=== PATIENT | male | born 1955 | race Hispanic/Latino ===

== ENCOUNTER → 2018-03-16 | Outpatient (CLI) | payer OTHER ==
[~2018-03-16] MED LIST: AMLO10TA2 PO; ASPI-1005 PO; CITA-107 PO; CLON0.2T PO; CLOP75TA32 PO; DILT240C96 PO; FLUT16H NASAL; HYDR-3421 PO; HYDR-4060 PO; ISOS60TA4 PO; LISI10TA7 PO; METO25TA6 PO; NITR.4 SL; SIMV40TA5 PO
== END | disposition home or self-care (01) ==
LOC: RAH 15:52
PROVIDERS: ATTEND Family Medicine
DX: M16.11 Unilateral primary osteoarthritis, right hip (principal); M17.11 Unilateral primary osteoarthritis, right knee
CPT/HCPCS: 73502; 73562

== ENCOUNTER 2018-07-29 17:32 | Emergency (ER) | payer OTHER ==
[~2018-07-29 17:32] MED LIST changes: -AMLO10TA2 PO; +AMLO10TA6 PO; -ASPI-1005 PO; -CITA-107 PO; -DILT240C96 PO; -HYDR-3421 PO; -HYDR-4060 PO; +LISI-613 PO; -LISI10TA7 PO; -NITR.4 SL; +PRAV20TA4 PO
[2018-07-29 19:04] LABS: BASOPHILS % (AUTO) 1.2 % (0.0-5.0); EOSINOPHILS % (AUTO) 3.9 % (0.0-8.0); HEMATOCRIT 42.7 % (42-54); LYMPHOCYTES % (AUTO) 22.5 % (21.0-51.0); MEAN CORPUSCULAR HEMOGLOBIN 32.2 pg (27.0-33.0); MEAN CORPUSCULAR HGB CONC 34.6 g/dL (32.0-36.0); MEAN CORPUSCULAR VOLUME 93.1 fL (79-99); MONOCYTES % (AUTO) 9.7 % (3.0-13.0); NEUTROPHILS % (AUTO) 62.7 % (40.0-77.0); PLATELET COUNT (AUTO) 191 K/uL (130-400); RED BLOOD CELL COUNT(AUTO) 4.59 MIL/uL (4.50-6.20); RED CELL DISTRIBUTION WIDTH 13.5 % (11.0-15.5); WHITE BLOOD COUNT (AUTO) 5.7 K/uL (4.8-10.8)
[2018-07-29 19:27] LABS: APPEARANCE,URINE Clear (CLEAR); BILIRUBIN,URINE Negative (NEGATIVE); COLOR,URINE Yellow (YELLOW); GLUCOSE, URINE (UA) Negative (NEGATIVE); KETONES,URINE Negative (NEGATIVE); LEUKOCYTE ESTERASE ,URINE Negative (NEGATIVE); NITRATE,URINE Negative (NEGATIVE); OCCULT BLOOD,URINE Negative (NEGATIVE); PROTEIN,URINE Negative (NEGATIVE); UROBILINOGEN,URINE 0.2 mg/dL (0.2-1.0)
[2018-07-29 19:28] LABS: CREATININE 0.8 mg/dL (0.5-1.5); POTASSIUM 3.6 mmol/L (3.5-5.1)
[2018-07-29 19:53] LABS: INR 0.93 (0.85-1.15); PARTIAL THROMBOPLASTIN TIME 27.6 SEC (26.3-35.5); PROTHROMBIN TIME 9.8 SEC (9.6-11.6)
== END 2018-07-29 21:39 | disposition home or self-care (01) ==
LOC: EDH 17:32
DX: M25.471 Effusion, right ankle (principal); I25.10 Atherosclerotic heart disease of native coronary artery without angina pectoris; E11.9 Type 2 diabetes mellitus without complications; E78.5 Hyperlipidemia, unspecified; I10 Essential (primary) hypertension; Z88.6 Allergy status to analgesic agent; Z79.4 Long term (current) use of insulin
CPT/HCPCS: 36415; 80048; 81003; 85025; 85610; 85730; 93926; 93971

== ENCOUNTER → 2018-11-01 | Outpatient (CLI) | payer OTHER ==
[~2018-11-01] MED LIST changes: -AMLO10TA6 PO; +AMLO10TA7 PO
== END | disposition home or self-care (01) ==
LOC: SHCH 09:26
PROVIDERS: ATTEND Internal Medicine Cardiovascular Disease
DX: I73.9 Peripheral vascular disease, unspecified (principal)
CPT/HCPCS: 93925

== ENCOUNTER → 2018-11-08 | Outpatient (CLI) | payer OTHER ==
[2018-11-08 08:57] LABS: CREATININE 1.2 mg/dL (0.5-1.5)
== END | disposition home or self-care (01) ==
LOC: LAB 08:28
PROVIDERS: ATTEND Family Medicine
DX: I73.9 Peripheral vascular disease, unspecified (principal)
CPT/HCPCS: 36415; 82565; 84520

== ENCOUNTER → 2018-11-14 | Outpatient (CLI) | payer OTHER ==
[~2018-11-14] MED LIST changes: +IOHEXOL 350 MG/ML 100ML INFUS..BTL IV ONE; +IOHEXOL-350 50ML VIAL IV ONE
== END | disposition home or self-care (01) ==
LOC: OIH 10:00
PROVIDERS: ATTEND Internal Medicine Cardiovascular Disease
DX: I70.202 Unspecified atherosclerosis of native arteries of extremities, left leg (principal); I77.1 Stricture of artery; K76.0 Fatty (change of) liver, not elsewhere classified; K57.30 Diverticulosis of large intestine without perforation or abscess without bleeding
CPT/HCPCS: 75635; Q9967 ×2

== ENCOUNTER 2018-11-25 07:25 | Day surgery (SDC) | payer OTHER ==
[2018-11-22 09:30] LABS: APPEARANCE,URINE Cloudy (CLEAR); BILIRUBIN,URINE Small (NEGATIVE); COLOR,URINE Dark Yellow (YELLOW); GLUCOSE, URINE (UA) Negative (NEGATIVE); KETONES,URINE Trace mg/dL (NEGATIVE); LEUKOCYTE ESTERASE ,URINE Trace (NEGATIVE); NITRATE,URINE Negative (NEGATIVE); OCCULT BLOOD,URINE Negative (NEGATIVE); PROTEIN,URINE Negative (NEGATIVE)
[2018-11-22 09:33] LABS: CREATININE 0.9 mg/dL (0.5-1.5); POTASSIUM 3.4 mmol/L (3.5-5.1)
[2018-11-22 09:34] LABS: BASOPHILS % (AUTO) 3.1 % (0.0-5.0); EOSINOPHILS % (AUTO) 11.6 % (0.0-8.0); HEMATOCRIT 42.2 % (42-54); LYMPHOCYTES % (AUTO) 22.3 % (21.0-51.0); MEAN CORPUSCULAR HEMOGLOBIN 32.4 pg (27.0-33.0); MEAN CORPUSCULAR HGB CONC 34.5 g/dL (32.0-36.0); MEAN CORPUSCULAR VOLUME 93.8 fL (79-99); PLATELET COUNT (AUTO) 233 K/uL (130-400); RED CELL DISTRIBUTION WIDTH 13.9 % (11.0-15.5); WHITE BLOOD COUNT (AUTO) 4.8 K/uL (4.8-10.8)
[2018-11-22 09:41] LABS: BACTERIA,URINE Rare /HPF (None Seen); INR 0.94 (0.85-1.15); MUCUS,URINE Moderate LPF (None Seen); PROTHROMBIN TIME 9.9 SEC (9.6-11.6); RBC,URINE None Seen /HPF (0-1); WBC,URINE 0-1 /HPF (0-1)
[2018-11-22 09:42] LABS: CALCIUM OXALATE CRYSTALS,UR Moderate /LPF (None Seen); SQUAMOUS EPITHELIAL CELL,UR 0-2 /HPF (0-2)
[2018-11-22 09:57] VITALS: BP 119/58
--- NOTE | 2018-11-24 10:25 | NUR ---
ABNORMAL LABS NOTIFIED ELHAM MENDIOLA OF PT'S POTASSIUM 3.4., UA- ULEUKEST TRACE, UWBC 0-1, NITRATES NEG. ORDERS TO REDRAW POTASSIUM UPON ARRIVAL DOS.
[~2018-11-25] VITALS: Ht 170.2 cm; Wt 83.7 kg
[2018-11-25] VITALS (16 sets, daily range): BP systolic 126–147; BP diastolic 67–82
[~2018-11-25 07:25] MED LIST changes: -CLON0.2T PO; -IOHEXOL 350 MG/ML 100ML INFUS..BTL IV ONE; -IOHEXOL-350 50ML VIAL IV ONE; +SODIUM CHLORIDE 0.9% 500ML 500 ML IV SCH
[2018-11-25] MEDS ORDERED: SODIUM CHLORIDE 0.9% 1000ML 1,000 ML IV ONE (07:41)
--- NOTE | 2018-11-25 08:32 | NUR ---
BELONGINGS WITH Addendum: 11/25/18 at 0837 by GWENDOLYN OSUNA RN RN Amended: Links added.
[2018-11-25] MEDS ORDERED: MELA5TAB14 PO (08:52)
[2018-11-25] MEDS ORDERED: HEPARIN SODIUM 1000UNIT/ML 10ML VIAL ONE (08:56)
[2018-11-25] MEDS ORDERED: LIDOCAINE HCL 2% 20ML ONE ×2 (08:56→13:31)
[2018-11-25] MEDS ORDERED: IODIXANOL 320 MG/ML 100 ML VIAL ONE (08:56)
[2018-11-25] MEDS ORDERED: NITROGLYCERIN 5 MG/ML 10 ML VIAL IV ONE (08:56)
[2018-11-25] MEDS ORDERED: MIDAZOLAM HCL 1 MG/ML 2ML VIAL ONE ×2 (08:57→13:30)
[2018-11-25] MEDS ORDERED: FENTANYL CITRATE PF 50 MCG/1 ML 2ML VIAL ONE ×2 (08:57→13:30)
--- NOTE | 2018-11-25 09:06 | NUR ---
PROCEDURE PT TAKEN TO PROCEDURE VIA BED. AT BEDSIDE.
[2018-11-25] MEDS ORDERED: SODIUM CHLORIDE 0.9% 1000ML 1,000 ML IV SCH ×2 (10:32→14:26)
[2018-11-25] MEDS ORDERED: METOPROLOL TARTRATE 1 MG/ML 5ML VIAL IV PRN ×2 (10:45→14:30)
[2018-11-25] MEDS ORDERED: HYDRALAZINE HCL 20 MG/ML VIAL IV PRN (10:45)
[2018-11-25] MEDS ORDERED: DEXTROSE 50%-WATER 50 ML DISP.SYRIN IV PRN ×2 (10:45→14:30)
[2018-11-25] MEDS ORDERED: GLUCAGON 1MG KIT 1 MG ML IM PRN ×2 (10:45→14:30)
--- NOTE | 2018-11-25 11:00 | NUR ---
PROCEDURE RECEIVED PT FROM PROCEDURE. DSTAT TO RIGHT FEMORAL GROIN SITE. SOFT TO TOUCH. NO BLEEDING, OOZING NOTED TO SITE. AT BEDSIDE. PT TO BE RE-CONSENTED FOR NEW PROCEDURE. DONE.
[2018-11-25] MEDS ORDERED: INSULIN HUMULIN R 100 UNIT/ML 3ML SQ SCH ×2 (11:30→16:30)
--- NOTE | 2018-11-25 13:22 | NUR ---
PROCEDURE PT TAKEN TO RESIDENTIAL PROGRAM COORDINATOR PT VIA BED BY Bre BHAKTA RN. PT STILL ON BEDREST. DENIES ANY DISCOMFORT. SITE TO RIGHT GROIN SOFT TO TOUCH.
[2018-11-25] MEDS ORDERED: PROTAMINE SULFATE 10 MG/ML 25ML VIAL IV ONE (14:27)
[2018-11-25] MEDS ORDERED: NITROGLYCERIN 0.4 MG SL TAB SL PRN (14:30)
[2018-11-25] MEDS ORDERED: ACETAMINOPHEN 325 MG TAB PO PRN (15:30)
--- NOTE | 2018-11-25 15:35 | NUR ---
ASSESSMENT RECEIVED PT FROM CAD PROGRAMMER STAFF GARDENIA STEEN. PT LYING IN BED. SITE TO LEFT GROIN SOFT TO TOUCH. PT WELL AWARE OF NOT MOVING LEFT LEG AND NOT LIFTING HEAD UP OFF OF BED. PT VERBALIZED UNDERSTANDING. SITE TO RIGHT GROIN SOFT TO TOUCH. DSTAT IN PLACE. NO BLEEDING, OOZING NOTED TO SITE.
--- NOTE | 2018-11-25 16:18 | NUR ---
REPORT REPORT GIVEN TO Anabel SEAY RN. PT ON BEDREST. SITE TO BOTH RIGHT AND LEFT GROIN SOFT TO TOUCH.
--- NOTE | 2018-11-25 18:30 | NUR ---
PT TOLERATED PROCEDURE WELL, NO C/O CHEST PAIN, DRESSINGS D/I. PT ABLE TO AMBULATE TO RESTROOM AND BACK TO ROOM, ASSISTED PT TO GET DRESSED AT BEDSIDE. POST CARE INSTRUCTIONS GIVEN TO PT AND , BOTH VERBALIZED UNDERSTANDING. PT PLACED IN WHEELCHAIR , DRIVEN HOME BY .
[2018-11-26] MEDS ORDERED: CLOPIDOGREL BISULFATE 75 MG TAB PO SCH (09:00)
== END 2018-11-25 18:30 | disposition home or self-care (01) ==
LOC: DAH 07:25
PROVIDERS: ATTEND Internal Medicine Cardiovascular Disease
DX: I70.218 Atherosclerosis of native arteries of extremities with intermittent claudication, other extremity (principal); I70.213 Atherosclerosis of native arteries of extremities with intermittent claudication, bilateral legs; E11.51 Type 2 diabetes mellitus with diabetic peripheral angiopathy without gangrene; E78.5 Hyperlipidemia, unspecified; Z86.73 Personal history of transient ischemic attack (TIA), and cerebral infarction without residual deficits; Z95.5 Presence of coronary angioplasty implant and graft; Z98.890 Other specified postprocedural states; Z79.899 Other long term (current) drug therapy; Z79.01 Long term (current) use of anticoagulants; Z88.8 Allergy status to other drugs, medicaments and biological substances; Z95.1 Presence of aortocoronary bypass graft; I10 Essential (primary) hypertension
CPT/HCPCS: 36247; 36415 ×2; 37224; 71045; 75630; 80048; 81001; 84132; 85025; 85347 ×2; 85610; 85730; 93005; A4606; C1725; C1769 ×3; C1887; C1893 ×2; C1894 ×5; J1644 ×3; J2250 ×2; J2720; J3010 ×2; J3490 ×3; J7030; Q9967; 99156; 99157

== ENCOUNTER → 2018-12-15 | Outpatient (CLI) | payer OTHER ==
[~2018-12-15] MED LIST changes: +MELA5TAB14 PO; -SODIUM CHLORIDE 0.9% 500ML 500 ML IV SCH
[2018-12-15 08:35] LABS: ALBUMIN 3.8 g/dL (3.5-5.0); BILIRUBIN,DIRECT 0.2 mg/dL (0.0-0.3); BILIRUBIN,TOTAL 0.5 mg/dL (0.2-1.0); TOTAL PROTEIN, SERUM 7.9 g/dL (6.0-8.3)
== END | disposition home or self-care (01) ==
LOC: LAB 07:58
PROVIDERS: ATTEND Internal Medicine Cardiovascular Disease
DX: I73.9 Peripheral vascular disease, unspecified (principal); I25.10 Atherosclerotic heart disease of native coronary artery without angina pectoris; E78.5 Hyperlipidemia, unspecified
CPT/HCPCS: 36415; 80061; 80076

== ENCOUNTER → 2019-01-12 | Outpatient (CLI) | payer OTHER ==
[2019-01-12 08:53] LABS: BASOPHILS % (AUTO) 1.4 % (0.0-5.0); EOSINOPHILS % (AUTO) 5.8 % (0.0-8.0); HEMATOCRIT 43.2 % (42-54); LYMPHOCYTES % (AUTO) 25.8 % (21.0-51.0); MEAN CORPUSCULAR HEMOGLOBIN 32.3 pg (27.0-33.0); MEAN CORPUSCULAR HGB CONC 34.4 g/dL (32.0-36.0); MEAN CORPUSCULAR VOLUME 94.2 fL (79-99); MONOCYTES % (AUTO) 10.4 % (3.0-13.0); NEUTROPHILS % (AUTO) 56.6 % (40.0-77.0); NUCLEATED RED BLOOD CELLS 0.2 % (0.0-0.19); PLATELET COUNT (AUTO) 198 K/uL (130-400); RED BLOOD CELL COUNT(AUTO) 4.58 MIL/uL (4.50-6.20); RED CELL DISTRIBUTION WIDTH 14.1 % (11.0-15.5); WHITE BLOOD COUNT (AUTO) 4.5 K/uL (4.8-10.8)
[2019-01-12 09:17] LABS: ALBUMIN 3.7 g/dL (3.5-5.0); BILIRUBIN,TOTAL 0.3 mg/dL (0.2-1.0); CREATININE 0.8 mg/dL (0.5-1.5); THYROID STIMULATING HORMONE 2.56 uIU/mL (0.36-3.74); TOTAL PROTEIN, SERUM 7.7 g/dL (6.0-8.3)
== END | disposition home or self-care (01) ==
LOC: RAH 07:57
PROVIDERS: ATTEND Family Medicine
DX: M17.12 Unilateral primary osteoarthritis, left knee (principal); M25.551 Pain in right hip; M25.552 Pain in left hip; M25.561 Pain in right knee; G89.29 Other chronic pain; I10 Essential (primary) hypertension; I73.9 Peripheral vascular disease, unspecified; R42 Dizziness and giddiness
CPT/HCPCS: 36415; 73522; 73562; 80053; 80061; 84443; 85025; 93005

== ENCOUNTER 2019-02-20 17:01 | Emergency (ER) | payer OTHER ==
[~2019-02-20 17:01] MED LIST changes: +ASPI-1197 PO; +BRIM5DRO OP; +CLON0.2T PO; +ISOS20TA7 PO; -ISOS60TA4 PO; -PRAV20TA4 PO; +PRAV40TA3 PO; -SIMV40TA5 PO
== END 2019-02-20 18:42 | disposition home or self-care (01) ==
LOC: EDH 17:01
DX: S20.212A Contusion of left front wall of thorax, initial encounter (principal); E11.9 Type 2 diabetes mellitus without complications; E78.5 Hyperlipidemia, unspecified; I10 Essential (primary) hypertension; I25.10 Atherosclerotic heart disease of native coronary artery without angina pectoris; Z88.6 Allergy status to analgesic agent; Z86.73 Personal history of transient ischemic attack (TIA), and cerebral infarction without residual deficits; Z87.891 Personal history of nicotine dependence; V89.2XXA Person injured in unspecified motor-vehicle accident, traffic, initial encounter; Y93.89 Activity, other specified; Y92.89 Other specified places as the place of occurrence of the external cause; Y99.8 Other external cause status
CPT/HCPCS: 71046

== ENCOUNTER → 2019-04-27 | Outpatient (CLI) | payer OTHER | END | disposition home or self-care (01) | LOC: SHCH 09:55 | PROVIDERS: ATTEND Internal Medicine Cardiovascular Disease | DX: I73.9 Peripheral vascular disease, unspecified (principal) | CPT/HCPCS: 93925 ==

== ENCOUNTER → 2019-12-13 | Outpatient (CLI) | payer OTHER | END | disposition home or self-care (01) | LOC: SHCH 09:43 | PROVIDERS: ATTEND Internal Medicine Cardiovascular Disease | DX: I87.2 Venous insufficiency (chronic) (peripheral) (principal) | CPT/HCPCS: 93970 ==

== ENCOUNTER → 2019-12-22 | Outpatient (CLI) | payer OTHER | END | disposition home or self-care (01) | LOC: SHCH 08:27 | PROVIDERS: ATTEND Internal Medicine Cardiovascular Disease | DX: I73.9 Peripheral vascular disease, unspecified (principal) | CPT/HCPCS: 93925 ==

== ENCOUNTER → 2019-12-29 | Outpatient (CLI) | payer OTHER | END | disposition home or self-care (01) | LOC: RAH 13:06 | PROVIDERS: ATTEND Internal Medicine Cardiovascular Disease | DX: J98.11 Atelectasis (principal); R91.8 Other nonspecific abnormal finding of lung field; J84.10 Pulmonary fibrosis, unspecified | CPT/HCPCS: 71250 ==

== ENCOUNTER → 2020-08-23 | Outpatient (CLI) | payer OTHER ==
[~2020-08-23] MED LIST changes: +AMLO-258 PO; -AMLO10TA7 PO
[2020-08-23 11:39] LABS: BASOPHILS % (AUTO) 1.3 % (0.0-5.0); EOSINOPHILS % (AUTO) 3.5 % (0.0-8.0); HEMATOCRIT 48.4 % (42-54); LYMPHOCYTES % (AUTO) 18.1 % (21.0-51.0); MEAN CORPUSCULAR HEMOGLOBIN 32.5 pg (27.0-33.0); MEAN CORPUSCULAR HGB CONC 34.1 g/dL (32.0-36.0); MEAN CORPUSCULAR VOLUME 95.3 fL (79-99); MONOCYTES % (AUTO) 11.1 % (3.0-13.0); NEUTROPHILS % (AUTO) 65.7 % (40.0-77.0); PLATELET COUNT (AUTO) 232 K/uL (130-400); RED BLOOD CELL COUNT(AUTO) 5.08 MIL/uL (4.50-6.20); RED CELL DISTRIBUTION WIDTH 13.8 % (11.0-15.5); WHITE BLOOD COUNT (AUTO) 7.8 K/uL (4.8-10.8)
[2020-08-23 12:03] LABS: ALBUMIN 4.1 g/dL (3.5-5.0); BILIRUBIN,TOTAL 0.5 mg/dL (0.2-1.0); POTASSIUM 3.7 mmol/L (3.5-5.1); THYROID STIMULATING HORMONE 4.15 uIU/mL (0.36-3.74); TOTAL PROTEIN, SERUM 8.4 g/dL (6.0-8.3)
== END | disposition home or self-care (01) ==
LOC: RAH 10:13
PROVIDERS: ATTEND Family Medicine
DX: C61 Malignant neoplasm of prostate (principal); I25.10 Atherosclerotic heart disease of native coronary artery without angina pectoris; M25.561 Pain in right knee; I10 Essential (primary) hypertension
CPT/HCPCS: 36415; 73562; 80053; 83721; 84066; 84443; 85025

== ENCOUNTER 2022-04-28 11:19 | Observation (INO) | payer OTHER, MEDICARE ==
[~2022-04-28] VITALS: Ht 170.2 cm; Wt 91.6 kg
[~2022-04-28 11:19] MED LIST changes: -DIPH50CA37 PO; -ISOS60TA77 PO; -TAMS-1 PO
[2022-04-28 12:20] LABS: BASOPHILS % (AUTO) 1.4 % (0.0-5.0); EOSINOPHILS % (AUTO) 4.9 % (0.0-8.0); HEMATOCRIT 48.7 % (42-54); LYMPHOCYTES % (AUTO) 16.2 % (21.0-51.0); MEAN CORPUSCULAR HEMOGLOBIN 31.8 pg (27.0-33.0); MEAN CORPUSCULAR HGB CONC 33.7 g/dL (32.0-36.0); MEAN CORPUSCULAR VOLUME 94.4 fL (79-99); MONOCYTES % (AUTO) 10.4 % (3.0-13.0); NEUTROPHILS % (AUTO) 66.8 % (40.0-77.0); PLATELET COUNT (AUTO) 204 K/uL (130-400); RED BLOOD CELL COUNT(AUTO) 5.16 MIL/uL (4.50-6.20); RED CELL DISTRIBUTION WIDTH 13.6 % (11.0-15.5); WHITE BLOOD COUNT (AUTO) 7.9 K/uL (4.8-10.8)
[2022-04-28 12:49] LABS: ALBUMIN 3.3 g/dL (3.5-5.0); CREATININE 0.9 mg/dL (0.5-1.5); POTASSIUM 3.7 mmol/L (3.5-5.1); TOTAL PROTEIN, SERUM 8.1 g/dL (6.0-8.3)
[2022-04-28 12:56] LABS: PROTHROMBIN TIME 10.9 SEC (9.6-11.6)
[2022-04-28 12:57] LABS: PARTIAL THROMBOPLASTIN TIME 28.4 SEC (26.3-35.5)
[2022-04-28 13:05] LABS: B-TYPE NATRIURETIC PEPTIDE 20 pg/mL (0-100)
[2022-04-28] MEDS ORDERED: IOHEXOL 350 MG/ML 100ML INFUS..BTL IV ONE (15:45)
[2022-04-28 18:10] LABS: APPEARANCE,URINE Clear (CLEAR); BILIRUBIN,URINE Negative (NEGATIVE); COLOR,URINE Yellow (YELLOW); GLUCOSE, URINE (UA) Negative (NEGATIVE); KETONES,URINE Trace mg/dL (NEGATIVE); LEUKOCYTE ESTERASE ,URINE Negative (NEGATIVE); NITRATE,URINE Negative (NEGATIVE); OCCULT BLOOD,URINE Negative (NEGATIVE); PROTEIN,URINE Negative (NEGATIVE)
[2022-04-28 18:23] LABS: RBC,URINE 0-1 /HPF (0-1); WBC,URINE 0-1 /HPF (0-1)
[2022-04-28 18:24] LABS: BACTERIA,URINE Rare /HPF (None Seen); SQUAMOUS EPITHELIAL CELL,UR Few /HPF (0-2)
[2022-04-28] MEDS ORDERED: KCL 20 MEQ ERTAB PO PRN (20:00)
[2022-04-28] MEDS ORDERED: ONDANSETRON 4MG INJ IVP PRN (20:00)
[2022-04-28] MEDS ORDERED: ACETAMINOPHEN 325 MG TAB PO PRN (20:00)
[2022-04-28] MEDS ORDERED: GLUCAGON 1MG KIT 1 MG ML IM PRN (20:00)
[2022-04-28] MEDS ORDERED: POTASSIUM CHLORIDE 10% ELIXIR 20 MEQ/15 ML UDCUP PO PRN (20:00)
[2022-04-28] MEDS ORDERED: POTASSIUM CHLORIDE 20MEQ/100ML 100 ML IV PRN (20:00)
[2022-04-28] MEDS ORDERED: DEXTROSE 50%-WATER 50 ML DISP.SYRIN IV PRN (20:00)
[2022-04-28] MEDS ORDERED: LIDOCAINE HCL-MPF 1% 2ML VIAL IV PRN (20:00)
[2022-04-28] MEDS: FAMOTIDINE 20MG TAB PO SCH (20:52)
[2022-04-28] MEDS: INSULIN HUMULIN R 100 UNIT/ML 3ML SQ SCH (20:56)
[2022-04-28] MEDS ORDERED: 0.9%NACL 1000ML 1,000 ML IV SCH (21:30)
[2022-04-28] MEDS ORDERED: TAMSULOSIN HCL 0.4 MG CAP.ER.24H PO SCH (21:30)
[2022-04-28] MEDS ORDERED: TRAZODONE HCL 50 MG TAB PO PRN (21:30)
[2022-04-28] MEDS ORDERED: ASPI-1197 PO (22:17)
[2022-04-28] MEDS ORDERED: CLOP75TA32 PO (22:17)
[2022-04-28] MEDS ORDERED: METO25TA6 PO (22:17)
[2022-04-28] MEDS ORDERED: ISOS60TA77 PO (22:17)
[2022-04-28] MEDS ORDERED: LISI20TA24 PO (22:17)
[2022-04-28] MEDS ORDERED: AMLO-258 PO (22:17)
[2022-04-28] MEDS ORDERED: DIPH50CA37 PO (22:17)
[2022-04-29 00:06] VITALS: BP 159/81
[2022-04-29 04:00] VITALS: BP 130/71
[2022-04-29] MEDS: INSULIN HUMULIN R 100 UNIT/ML 3ML SQ SCH ×2 (05:52→11:30)
[2022-04-29 06:25] LABS: BASOPHILS % (AUTO) 1.8 % (0.0-5.0); HEMATOCRIT 46.3 % (42-54); LYMPHOCYTES % (AUTO) 16.2 % (21.0-51.0); MEAN CORPUSCULAR HGB CONC 33.7 g/dL (32.0-36.0); MEAN CORPUSCULAR VOLUME 95.1 fL (79-99); MONOCYTES % (AUTO) 11.8 % (3.0-13.0); NEUTROPHILS % (AUTO) 65.1 % (40.0-77.0); PLATELET COUNT (AUTO) 193 K/uL (130-400); RED BLOOD CELL COUNT(AUTO) 4.87 MIL/uL (4.50-6.20); RED CELL DISTRIBUTION WIDTH 13.4 % (11.0-15.5); WHITE BLOOD COUNT (AUTO) 6.8 K/uL (4.8-10.8)
[2022-04-29 06:44] LABS: ALBUMIN 3.1 g/dL (3.5-5.0); BILIRUBIN,DIRECT 0.3 mg/dL (0.0-0.3); CREATININE 0.8 mg/dL (0.5-1.5); POTASSIUM 3.7 mmol/L (3.5-5.1); THYROID STIMULATING HORMONE 6.32 uIU/mL (0.36-3.74); TOTAL PROTEIN, SERUM 7.7 g/dL (6.0-8.3)
[2022-04-29 08:00] VITALS: BP 153/73
[2022-04-29 08:52] LABS: ABG BASE EXCESS 0.3 mmol/L (-2.0-3.0); ABG HCO3 24.5 mmol/L (21.0-28.0); ABG OXYGEN SATURATION 96.5 % (95.0-99.0); ABG PCO2 38 mmHg (35-48)
[2022-04-29] MEDS ORDERED: ENOXAPARIN SODIUM 40 MG/0.4 ML SYRINGE SQ SCH (09:00)
[2022-04-29] MEDS ORDERED: TAMSULOSIN HCL 0.4 MG CAP.ER.24H PO SCH (09:00)
[2022-04-29] MEDS: FAMOTIDINE 20MG TAB PO SCH (09:40)
[2022-04-29 12:00] VITALS: BP 151/87
[2022-04-29] MEDS ORDERED: TAMS-1 PO (15:18)
[2022-04-30 06:28] LABS: HEPATITIS A IGM ANTIBODY Non-Reactive (Nonreactive); HEPATITIS B CORE IGM ANTIBODY Non-Reactive (Negative); HEPATITIS B SURFACE ANTIGEN Non-Reactive (Nonreactive); HEPATITIS C ANTIBODY Non-Reactive (Nonreactive)
[2022-04-30] MEDS ORDERED: ASPIRIN 81MG CHEW TAB PO SCH (09:00)
[2022-04-30] MEDS ORDERED: CLOPIDOGREL 75MG TAB PO SCH (09:00)
[2022-04-30] MEDS ORDERED: AMLODIPINE 5 MG TAB PO SCH (09:00)
[2022-04-30] MEDS ORDERED: LISINOPRIL 20 MG TABLET PO SCH (09:00)
[2022-04-30] MEDS ORDERED: ISOSORBIDE MONO 60MG SR TAB PO SCH (09:00)
[2022-04-30] MEDS ORDERED: METOPROLOL TARTRATE 25 MG TAB PO SCH (09:00)
== END 2022-04-29 17:00 | disposition home or self-care (01) ==
LOC: EDH 11:19 → EDHIP 17:38 → INTOOBSV 17:38 → 3AH 04-29 00:06
PROVIDERS: ADMIT Hospitalist; ATTEND Hospitalist
DX: J96.01 Acute respiratory failure with hypoxia (principal); Z20.822 Contact with and (suspected) exposure to COVID-19; K76.0 Fatty (change of) liver, not elsewhere classified; I10 Essential (primary) hypertension; I25.10 Atherosclerotic heart disease of native coronary artery without angina pectoris; E11.9 Type 2 diabetes mellitus without complications; E78.5 Hyperlipidemia, unspecified; G47.33 Obstructive sleep apnea (adult) (pediatric); J44.9 Chronic obstructive pulmonary disease, unspecified; E66.9 Obesity, unspecified; N20.0 Calculus of kidney; Z86.711 Personal history of pulmonary embolism; Z86.73 Personal history of transient ischemic attack (TIA), and cerebral infarction without residual deficits; Z87.891 Personal history of nicotine dependence; Z95.1 Presence of aortocoronary bypass graft; Z79.82 Long term (current) use of aspirin; Z79.899 Other long term (current) drug therapy; Z98.890 Other specified postprocedural states; Z68.31 Body mass index [BMI] 31.0-31.9, adult
CPT/HCPCS: 36415; 36600; 71270; 80048; 80053; 80074; 80076; 81001; 82306; 82550; 82803; 82948; 83880; 84443; 84484; 85025; 85378; 85610; 85730; 87635; 87804; 93005; 93306; 93356; 93970; 94760; 96360; 96361; 96372; C9803; G0378; J1650; J7030; Q9967

== ENCOUNTER → 2022-04-28 | Outpatient (CLI) | payer OTHER ==
[~2022-04-28] MED LIST changes: +DIPH50CA37 PO; -ISOS20TA7 PO; +ISOS20TA85 PO; +ISOS60TA77 PO; -LISI-613 PO; +LISI20TA24 PO; +TAMS-1 PO
[2022-04-28 07:53] LABS: BASOPHILS % (AUTO) 1.9 % (0.0-5.0); EOSINOPHILS % (AUTO) 6.3 % (0.0-8.0); HEMATOCRIT 50.3 % (42-54); MEAN CORPUSCULAR HGB CONC 33.4 g/dL (32.0-36.0); MEAN CORPUSCULAR VOLUME 95.8 fL (79-99); MONOCYTES % (AUTO) 8.7 % (3.0-13.0); NEUTROPHILS % (AUTO) 58.8 % (40.0-77.0); PLATELET COUNT (AUTO) 230 K/uL (130-400); RED BLOOD CELL COUNT(AUTO) 5.25 MIL/uL (4.50-6.20); RED CELL DISTRIBUTION WIDTH 13.6 % (11.0-15.5); WHITE BLOOD COUNT (AUTO) 6.8 K/uL (4.8-10.8)
[2022-04-28 10:13] LABS: ALBUMIN 3.5 g/dL (3.5-5.0); BILIRUBIN,TOTAL 0.4 mg/dL (0.2-1.0); CREATININE 0.8 mg/dL (0.5-1.5); POTASSIUM 3.7 mmol/L (3.5-5.1); THYROID STIMULATING HORMONE 3.15 uIU/mL (0.36-3.74); TOTAL PROTEIN, SERUM 8.5 g/dL (6.0-8.3)
== END | disposition home or self-care (01) ==
LOC: LAB 07:31
PROVIDERS: ATTEND Family Medicine
DX: R10.9 Unspecified abdominal pain (principal); R07.9 Chest pain, unspecified
CPT/HCPCS: 36415; 71045; 80053; 80061; 82150; 83690; 84153; 84154; 84443; 85025; 85378

== ENCOUNTER → 2022-07-07 | Outpatient (CLI) | payer OTHER, MEDICARE ==
[~2022-07-07] MED LIST changes: +DIPH50CA37 PO; +ISOS60TA77 PO; +TAMS-1 PO
[2022-07-07 09:08] LABS: ALBUMIN 3.5 g/dL (3.5-5.0); CREATININE 0.9 mg/dL (0.5-1.5); POTASSIUM 4.4 mmol/L (3.5-5.1); THYROID STIMULATING HORMONE 2.89 uIU/mL (0.36-3.74); TOTAL PROTEIN, SERUM 8.1 g/dL (6.0-8.3)
== END | disposition home or self-care (01) ==
LOC: LAB 07:17
PROVIDERS: ATTEND Family Medicine
DX: M54.50 Low back pain, unspecified (principal)
CPT/HCPCS: 36415; 80053; 80061; 83880; 84443; 85378

== ENCOUNTER → 2023-12-04 | Outpatient (CLI) | payer OTHER | END | disposition home or self-care (01) | LOC: SHCH 11:28 | PROVIDERS: ATTEND Internal Medicine Cardiovascular Disease | DX: I73.9 Peripheral vascular disease, unspecified (principal) | CPT/HCPCS: 93925 ==

== ENCOUNTER → 2023-12-06 | Outpatient (CLI) | payer OTHER ==
[2023-12-06] MEDS: REGADENOSON 0.4 MG/5 ML PF SYG IVP ONE (13:28)
== END | disposition home or self-care (01) ==
LOC: SHCH 08:13
PROVIDERS: ATTEND Internal Medicine Cardiovascular Disease
DX: R07.9 Chest pain, unspecified (principal); I25.810 Atherosclerosis of coronary artery bypass graft(s) without angina pectoris; I20.9 Angina pectoris, unspecified
CPT/HCPCS: 78452; 96374; 93017; J2785; A9500 ×2

== ENCOUNTER → 2024-01-25 | Outpatient (CLI) | payer OTHER ==
[2024-01-25 16:26] LABS: CREATININE 0.7 mg/dL (0.5-1.3); POTASSIUM 4.1 mmol/L (3.5-5.1)
== END | disposition home or self-care (01) ==
LOC: LAB 13:45
PROVIDERS: ATTEND Internal Medicine Cardiovascular Disease
DX: I10 Essential (primary) hypertension (principal); I73.9 Peripheral vascular disease, unspecified
CPT/HCPCS: 36415; 80048

== ENCOUNTER → 2024-02-07 | Outpatient (CLI) | payer OTHER ==
[~2024-02-07] MED LIST changes: +IOHEXOL 350 MG/ML 100ML INFUS..BTL IV ONE; +IOHEXOL-350 50ML VIAL IV ONE; -MELA5TAB14 PO; +MELA5TAB66 PO
== END | disposition home or self-care (01) ==
LOC: RAH 10:08
PROVIDERS: ATTEND Internal Medicine Cardiovascular Disease
DX: I70.203 Unspecified atherosclerosis of native arteries of extremities, bilateral legs (principal); M47.815 Spondylosis without myelopathy or radiculopathy, thoracolumbar region
CPT/HCPCS: 75635; Q9967 ×2

== ENCOUNTER → 2024-02-24 | Outpatient (CLI) | payer OTHER ==
[~2024-02-24] MED LIST changes: -IOHEXOL 350 MG/ML 100ML INFUS..BTL IV ONE; -IOHEXOL-350 50ML VIAL IV ONE
== END ==
LOC: SHCH 14:19
PROVIDERS: ATTEND Internal Medicine Cardiovascular Disease
DX: I87.2 Venous insufficiency (chronic) (peripheral) (principal)
CPT/HCPCS: 93970

== ENCOUNTER 2024-04-27 07:49 | Observation (INO) | payer OTHER ==
[2024-04-25 11:41] LABS: BASOPHILS # (AUTO) 0.09 K/uL (0.00-0.20); BASOPHILS % (AUTO) 1.7 % (0.0-5.0); EOSINOPHILS # (AUTO) 0.24 K/uL (0.00-0.70); EOSINOPHILS % (AUTO) 4.4 % (0.0-8.0); HEMATOCRIT 49.7 % (42-54); IMMATURE GRANULOCYTE ABSOLUTE 0.02 K/uL (0-1); LYMPHOCYTES # (AUTO) 1.6 K/uL (1.0-4.8); LYMPHOCYTES % (AUTO) 29.8 % (21.0-51.0); MEAN CORPUSCULAR HEMOGLOBIN 32.9 pg (27.0-33.0); MEAN CORPUSCULAR VOLUME 96.9 fL (79-99); MONOCYTES # (AUTO) 0.5 K/uL (0.1-1.0); MONOCYTES % (AUTO) 9.9 % (3.0-13.0); NEUTROPHILS # (AUTO) 2.9 K/uL (1.8-7.7); NEUTROPHILS % (AUTO) 53.8 % (40.0-77.0); PLATELET COUNT (AUTO) 181 K/uL (130-400); RED BLOOD CELL COUNT(AUTO) 5.13 MIL/uL (4.50-6.20); RED CELL DISTRIBUTION WIDTH 14.1 % (11.0-15.5); WHITE BLOOD COUNT (AUTO) 5.4 K/uL (4.8-10.8)
[2024-04-25 11:42] VITALS: BP 160/74; PULSE 79; RESP 17
[2024-04-25 11:54] LABS: CREATININE 0.8 mg/dL (0.5-1.3); INR 1.06 (0.85-1.15); POTASSIUM 3.6 mmol/L (3.5-5.1); PROTHROMBIN TIME 11.4 SEC (9.6-11.6)
[2024-04-25 11:55] LABS: PARTIAL THROMBOPLASTIN TIME 28.9 SEC (26.3-35.5)
[2024-04-26 22:45] VITALS: BP 142/70; PULSE 68
[2024-04-27] VITALS (19 sets, daily range): BP systolic 102–151; BP diastolic 55–89; PULSE 59–83; RESP 17–18; O2SAT 90–95
[~2024-04-27] VITALS: Ht 170.2 cm; Wt 92.0 kg
[~2024-04-27 07:49] MED LIST changes: -BRIM5DRO OP; -CLON0.2T PO; -DIPH50CA37 PO; -FLUT16H NASAL; -ISOS60TA77 PO; -MELA5TAB66 PO; +NITR0.4T50 SL; -PRAV40TA3 PO; -TAMS-1 PO
[2024-04-27] MEDS: 0.9%NACL 1000ML 1,000 ML IV ONE (10:02)
[2024-04-27] MEDS ORDERED: LIDOCAINE HCL 400MG/20ML VIAL ONE (11:34)
[2024-04-27] MEDS ORDERED: IODIXANOL 320 MG/ML 100 ML VIAL ONE (11:34)
[2024-04-27] MEDS ORDERED: HEPARIN 10,000 UNIT/10ML (1,000 UNIT/ML) VIAL ONE (11:35)
[2024-04-27] MEDS ORDERED: NITROGLYCERIN 50MG VIAL ONE (11:35)
[2024-04-27] MEDS ORDERED: MIDAZOLAM HCL 1 MG/ML 2ML VIAL ONE (12:00)
[2024-04-27] MEDS ORDERED: FENTANYL CITRATE PF 50 MCG/1 ML 2ML VIAL ONE ×2 (12:00→12:37)
[2024-04-27] MEDS ORDERED: DEXTROSE 50%-WATER 50 ML DISP.SYRIN IV PRN (15:00)
[2024-04-27] MEDS ORDERED: GLUCAGON 1MG KIT 1 MG ML IM PRN (15:00)
[2024-04-27] MEDS ORDERED: NITROGLYCERIN 0.4 MG SL TAB SL PRN ×2 (15:00→16:00)
[2024-04-27] MEDS ORDERED: METOPROLOL TARTRATE 1 MG/ML 5ML VIAL IV PRN (15:00)
[2024-04-27] MEDS: 0.9%NACL 1000ML 1,000 ML IV SCH (15:00)
[2024-04-27] MEDS ORDERED: HYDRALAZINE 25MG TABLET PO PRN (16:00)
[2024-04-27] MEDS ORDERED: POTASSIUM CHLORIDE 10% ELIXIR 20 MEQ/15 ML UDCUP PO PRN (16:00)
[2024-04-27] MEDS ORDERED: POTASSIUM CHLORIDE 20MEQ/100ML 100 ML IV PRN ×2 (16:00)
[2024-04-27] MEDS ORDERED: DIPHENHYDRAMINE HCL 25 MG CAPSULE PO PRN (16:00)
[2024-04-27] MEDS ORDERED: LACTULOSE 20 GM/30 ML UDCUP PO PRN (16:00)
[2024-04-27] MEDS ORDERED: DiphenhydrAMINE HCL 50 MG/ML VIAL IV PRN (16:00)
[2024-04-27] MEDS ORDERED: ONDANSETRON 4MG INJ IV PRN (16:00)
[2024-04-27] MEDS ORDERED: POLYETHYLENE GLYCOL 3350 17 GM POWD.PACK PO PRN (16:00)
[2024-04-27] MEDS ORDERED: DOCUSATE SODIUM 100 MG CAP PO PRN (16:00)
[2024-04-27] MEDS ORDERED: ACETAMINOPHEN 325 MG TAB PO PRN (16:00)
[2024-04-27] MEDS ORDERED: KCL 20 MEQ ERTAB PO PRN (16:00)
[2024-04-27] MEDS: INSULIN HUMULIN R 100 UNIT/ML 3ML SQ SCH ×2 (16:30)
[2024-04-27] MEDS: TRAMADOL HCL 50 MG TABLET PO PRN (19:46)
[2024-04-27] MEDS: FAMOTIDINE 20MG TAB PO SCH (20:40)
[2024-04-27] MEDS ORDERED: 0.9% NACL 500ML IV.SOLN 500 ML IV SCH (21:00)
[2024-04-27] MEDS: ACETAMINOPHEN 325 MG TAB PO PRN (22:57)
[2024-04-28] VITALS (16 sets, daily range): BP systolic 121–157; BP diastolic 61–88; PULSE 62–80; RESP 16–18; O2SAT 96
[2024-04-28] MEDS ORDERED: ZOLPIDEM TARTRATE 5 MG TAB PO PRN (03:00)
[2024-04-28] MEDS: DiphenhydrAMINE HCL 50 MG/ML VIAL IV ONE (03:31)
[2024-04-28 03:57] LABS: BASOPHILS % (AUTO) 1.2 % (0.0-5.0); EOSINOPHILS # (AUTO) 0.28 K/uL (0.00-0.70); EOSINOPHILS % (AUTO) 3.5 % (0.0-8.0); HEMATOCRIT 49.7 % (42-54); IMMATURE GRANULOCYTE ABSOLUTE 0.03 K/uL (0-1); LYMPHOCYTES # (AUTO) 1.3 K/uL (1.0-4.8); LYMPHOCYTES % (AUTO) 16.4 % (21.0-51.0); MEAN CORPUSCULAR HEMOGLOBIN 32.6 pg (27.0-33.0); MEAN CORPUSCULAR HGB CONC 33.8 g/dL (32.0-36.0); MEAN CORPUSCULAR VOLUME 96.3 fL (79-99); MONOCYTES # (AUTO) 0.9 K/uL (0.1-1.0); MONOCYTES % (AUTO) 10.8 % (3.0-13.0); NEUTROPHILS # (AUTO) 5.5 K/uL (1.8-7.7); NEUTROPHILS % (AUTO) 67.7 % (40.0-77.0); PLATELET COUNT (AUTO) 168 K/uL (130-400); RED BLOOD CELL COUNT(AUTO) 5.16 MIL/uL (4.50-6.20); RED CELL DISTRIBUTION WIDTH 13.5 % (11.0-15.5); WHITE BLOOD COUNT (AUTO) 8.1 K/uL (4.8-10.8)
[2024-04-28 04:20] LABS: ALBUMIN 3.7 g/dL (3.5-5.0); BILIRUBIN,TOTAL 0.8 mg/dL (0.2-1.0); CREATININE 0.8 mg/dL (0.5-1.3); MAGNESIUM 1.9 mg/dL (1.80-2.40); POTASSIUM 3.8 mmol/L (3.5-5.1); TOTAL PROTEIN, SERUM 8.4 g/dL (6.0-8.3)
[2024-04-28] MEDS: MAGNESIUM 2GM PREMIX 50ML 50 ML IV PRN (04:31)
[2024-04-28] MEDS: POTASSIUM CHLORIDE 20MEQ/100ML 100 ML IV PRN (05:00)
[2024-04-28] MEDS ORDERED: LIDOCAINE HCL 400MG/20ML VIAL ONE (11:12)
[2024-04-28] MEDS ORDERED: NITROGLYCERIN 50MG VIAL ONE (11:13)
[2024-04-28] MEDS ORDERED: HEPARIN 10,000 UNIT/10ML (1,000 UNIT/ML) VIAL ONE (11:13)
[2024-04-28] MEDS ORDERED: FENTANYL CITRATE PF 50 MCG/1 ML 2ML VIAL ONE (11:15)
[2024-04-28] MEDS ORDERED: MIDAZOLAM HCL 1 MG/ML 2ML VIAL ONE ×2 (11:15→11:30)
[2024-04-28] MEDS ORDERED: IODIXANOL 320 MG/ML 100 ML VIAL ONE (11:15)
[2024-04-28] MEDS ORDERED: ASPIRIN 81MG CHEW TAB ONE (12:05)
[2024-04-28] MEDS ORDERED: CLOPIDOGREL 75MG TAB ONE (12:05)
[2024-04-28] MEDS: 0.9%NACL 1000ML 1,000 ML IV SCH (12:30)
[2024-04-28] MEDS: LISINOPRIL 20 MG TABLET PO SCH (13:00)
[2024-04-28] MEDS: AMLODIPINE 5 MG TAB PO SCH (13:00)
[2024-04-28] MEDS: ISOSORBIDE MONO 60MG SR TAB PO SCH (13:00)
[2024-04-28] MEDS ORDERED: METOPROLOL TARTRATE 25 MG TAB PO SCH (13:00)
[2024-04-28] MEDS ORDERED: ATOR20TA65 PO (15:56)
[2024-04-29] MEDS ORDERED: METOPROLOL TARTRATE 25 MG TAB PO SCH (09:00)
== END 2024-04-28 18:00 | disposition home or self-care (01) ==
LOC: DAH 07:49 → DAHIP 07:50 → 2DH 15:30
PROVIDERS: ADMIT Internal Medicine; ATTEND Internal Medicine
DX: I73.9 Peripheral vascular disease, unspecified (principal); I99.8 Other disorder of circulatory system; I87.2 Venous insufficiency (chronic) (peripheral); I70.8 Atherosclerosis of other arteries; E11.51 Type 2 diabetes mellitus with diabetic peripheral angiopathy without gangrene; E78.00 Pure hypercholesterolemia, unspecified; I10 Essential (primary) hypertension; I25.10 Atherosclerotic heart disease of native coronary artery without angina pectoris; F10.10 Alcohol abuse, uncomplicated; K59.00 Constipation, unspecified; N52.9 Male erectile dysfunction, unspecified; E66.9 Obesity, unspecified; Z68.31 Body mass index [BMI] 31.0-31.9, adult; Z79.82 Long term (current) use of aspirin; Z79.899 Other long term (current) drug therapy; Z86.73 Personal history of transient ischemic attack (TIA), and cerebral infarction without residual deficits; Z87.891 Personal history of nicotine dependence; Z95.1 Presence of aortocoronary bypass graft
CPT/HCPCS: 80048; 85025 ×2; 85610; 85730; 36415 ×3; 75625; 75716; 75774; 37252 ×2; 37253 ×3; 85347 ×2; 82948 ×5; 96365; 96366; 96375; 83735; 80053; C1887; C1725 ×3; C1876 ×2; C1769 ×6; C1894 ×5; C1893 ×2; C1874; C1753 ×2; C9765 ×2; G0378 ×26; J3010 ×3; J3490 ×4; J7030; J1644 ×5; J2250 ×3; Q9967 ×2; A4215; A4223 ×3; A4222; A4221; A4663; A4216; A4606; J3475; J1200; J3480; 75630; 99156; 99157

== ENCOUNTER → 2024-05-30 | Outpatient (CLI) | payer OTHER ==
[~2024-05-30] MED LIST changes: +ATOR20TA65 PO
== END | disposition home or self-care (01) ==
LOC: RAH 10:08
PROVIDERS: ATTEND Internal Medicine Cardiovascular Disease
DX: I72.8 Aneurysm of other specified arteries (principal); K40.90 Unilateral inguinal hernia, without obstruction or gangrene, not specified as recurrent
CPT/HCPCS: 93926